=== PATIENT | male | born 1950 | race Caucasian/White ===

== ENCOUNTER 2022-03-10 21:57 | Emergency (ER) | payer MEDICARE, BC, SELFPAY ==
[2022-03-10 22:16] VITALS: BP 181/85; PULSE 84; RESP 22; TEMP 38.2; O2SAT 97
--- NOTE | 2022-03-10 23:24 | CRLHL7_ITS ---
For Patients: As a result of the Cures Act, medical imaging exams and procedure reports are released immediately into your electronic medical record. You may view this report before your referring provider. If you have questions, please contact your health care provider. INDICATION: Fever TECHNIQUE: Chest radiograph 2 views COMPARISON: None FINDINGS: Mediastinum: Previous median sternotomy and coronary artery bypass grafting (CABG) noted. The heart silhouette is normal in size and morphology. Lung: Discoid atelectasis is seen in the left lung base. The right lateral costophrenic sulcus is partially excluded. No sign of pleural effusion seen. No pneumothorax is identified. Bone and Soft tissue: Unremarkable for age. IMPRESSION: 1. Discoid atelectasis is seen in the left lung base. Dictated by Sony Ghosh MD @ 03/11/2022 12:04:27 AM Dictated by: Sony Ghosh MD @ 03/11/2022 00:06:10 (Electronically Signed)
[2022-03-10 23:37] LABS: Appearance Urine Cloudy (Clear); Bilirubin Urine Negative (Negative); Blood Urine Trace-lysed (Negative); Color Urine Yellow (Yellow); Glucose Urine Negative (Negative); Ketones Urine Negative (Negative); Leukocyte Esterase Urine Negative (Negative); Nitrite Urine Negative (Negative); Protein Urine Trace (Negative); Specific Gravity Urine 1.025 (1.000-1.030); Urobilinogen Urine 0.2 (0.2-1.0); pH Urine 5.5 (5.0-8.5)
[2022-03-10 23:45] LABS: SARS Antigen* negative
[2022-03-10] MEDS: ACETAMINOPHEN 500 MG TABLET 1000 MG PO (23:45)
[2022-03-10] MEDS: 0.9 % SODIUM CHLORIDE 1000 ml 1,000 ML IV (23:45)
[2022-03-10 23:47] VITALS: TEMP 38.8
[2022-03-10 23:53] LABS: Glucose, Point-of-Care* 160 mg/dl (60-115)
[2022-03-10 23:55] LABS: RBC Urine 0-2 (0-2); Squamous Epithelial Cell Urine Few (None-Few); WBC Urine 0-2 (0-5)
[2022-03-11 00:03] LABS: Albumin* 4.3 g/dL (3.3-5.0); Chloride* 105 mmol/L (96-114); Sodium* 139 mmol/L (135-149)
[2022-03-11 00:04] LABS: Potassium* 3.9 mmol/L (3.6-5.1)
[2022-03-11 00:05] LABS: Creatinine* 1.1 mg/dL (0.5-1.5); Estimated Glomerular Filt Rate 71.32
[2022-03-11 00:06] LABS: Aspartate Amino Transferase* 32 U/L (12-35); Bilirubin Direct* 0.3 mg/dL (0.0-0.5); Bilirubin Total* 0.7 mg/dL (0.1-1.5); Carbon Dioxide* 25 mmol/L (20-32)
[2022-03-11 00:07] LABS: Alanine Aminotransferase* 35 U/L (4-50); Alkaline Phosphatase* 65 U/L (40-150); Blood Urea Nitrogen* 20 mg/dL (7-30); Calcium* 9.4 mg/dL (8.4-10.6); Glucose* 168 mg/dL (60-115); Total Protein* 7.2 g/dL (6.0-8.3)
[2022-03-11 00:09] LABS: C Reactive Protein* 1.5 mg/dL (0.5-1.0)
[2022-03-11 00:40] LABS: Basophils Percent Auto 0.2 % (0.0-3.0); Eosinophils Percent Auto 0.1 % (0.0-7.0); Hematocrit 43.8 % (37.0-53.0); Hemoglobin* 14.8 gm/dL (13.5-17.5); Immature Granulocytes Abs Auto 0.08 K/uL (0.00-0.30); Lymphocytes Percent Auto 3.5 % (20-44); Mean Corpuscular HGB Conc 34 gm/dL (32-36); Mean Corpuscular Hemoglobin 30 pg (26-34); Mean Corpuscular Volume 89 fL (80-100); Monocytes Percent Auto 5.7 % (0.0-11.0); Platelet Count* 149 K/uL (140-440); RDW Coefficient of Variation % 13.1 % (11.5-15.5); Red Blood Count 4.94 m/uL (4.30-5.90)
[2022-03-11 00:45] LABS: Slide Review Reflex No
[2022-03-11 01:04] LABS: Influenza Type A Negative (Negative); Influenza Type B Negative (Negative)
[2022-03-11 01:14] VITALS: RESP 16; TEMP 37
[2022-03-11 02:00] VITALS: BP 131/67; PULSE 68; RESP 16; TEMP 37; O2SAT 97
[2022-03-11 02:51] VITALS: BP 125/78; PULSE 78; RESP 18; TEMP 37
--- NOTE | 2022-03-11 11:48 | ED_ITS ---
HPI - Fever General Chief Complaint: Fever Stated Complaint: Fever,Shaking Time Seen by Provider: 03/10/22 22:10 Source: patient, family, RN notes reviewed and old records reviewed Limitations: no limitations History of Present Illness HPI Narrative: 71-year-old man presenting to the emergency department accompanied by spouse with concern of feeling feverish and shaky. This developed around 6 hours ago sometime around 3:00 p.m. at least. He does not have any chest pain but maybe a fullness in his chest. Apparently has burped and this has helped the sensation he is having. He is not nauseated. Notes a history of LUTS with bladder distension and left testicular swelling. He is not having particular dysuria but does have a sense of urgency, this is not new. No diarrhea. vaccinated for COVID and boosted. Was tested earlier today apparently at home with negative COVID antigen. Just recently had COVID and treated with 5 days of Paxil of it. Earlier this week tested negative on recheck. Also had a COVID diagnosis 1 or 2 months ago reports. Took ibuprofen a couple hours before arrival here. During exam does get urge to urinate. Certainly fullness in the low abdomen. Nursing checks with bladder scan noting postvoid residual of 290 mL. On my review of records I see an echocardiogram from 02/17/2022 with an EF of 58% and normal function. Related Data Home Medications Medication Instructions Recorded Confirmed amlodipine 10 mg tablet mg 03/10/22 bupropion HCl 150 mg 24 hr tablet, mg PO 03/10/22 extended release carvedilol 6.25 mg tablet mg 03/10/22 hydrochlorothiazide 12.5 mg tablet mg 03/10/22 insulin syringe-needle U-100 0.5 03/10/22 03/10/22 mL 31 gauge x 01/18 (TRUEplus Insulin) levothyroxine 175 mcg tablet mcg 03/10/22 losartan 100 mg tablet mg 03/10/22 mirtazapine 7.5 mg tablet mg 03/10/22 nirmatrelvir 300 mg (150 mg x tab PO 03/10/22 2)-ritonavir 100 mg tablet (EUA) (Paxlovid 300 mg () rosuvastatin 10 mg tablet mg 03/10/22 rosuvastatin 5 mg tablet mg 03/10/22 sertraline 50 mg tablet mg 03/10/22 tamsulosin 0.4 mg capsule mg PO 03/10/22 Allergies Allergy/AdvReac Type Severity Reaction Status Date / Time No Known Drug Allergies Allergy Verified 03/10/22 22:19 Review of Systems Status of ROS Reports: 6 or more systems reviewed and unremarkable except as noted in History and below [facility] Social History Smoking Status: Unknown if ever smoked Do you use any of these nicotine containing products: None Non-prescribed substance use: denies use Exam Narrative Exam Narrative: Well-nourished NAD but seems generally uncomfortable. Hard of hearing. Speaking easily. Breathing easily. nerves 2-12 otherwise intact. Ry complected about his face. He seems generally tired. Skin generally rather warm without rash. Oropharynx is a little sticky. Lungs are clear equal expansion excursion. Cardiovascular is RRR without murmurs rubs or gallops. Abdomen is soft normoactive bowel sounds. Fullness in the lower abdomen also triggering desire to urinate. There is no flank pain. Extremities are without edema. Moving all extremities without difficulty. Well-perfused Const Vital Signs, click to edit/add: Vital Signs - 24 hr 03/10/22 22:16 03/10/22 23:47 03/11/22 01:14 Temperature 100.8 F H 101.9 F H 98.6 F Pulse Rate Pulse Rate [Left Pulse Oximeter] 84 Respiratory Rate 22 16 Blood Pressure Blood Pressure [Left Upper Arm] 181/85 H Pulse Oximetry 97 03/11/22 02:00 03/11/22 02:51 Temperature 98.6 F 98.6 F Pulse Rate 78 Pulse Rate [Left Pulse Oximeter] 68 Respiratory Rate 16 18 Blood Pressure 125/78 Blood Pressure [Left Upper Arm] 131/67 Pulse Oximetry 97 Documenting provider has reviewed patient's vital signs: yes Course Course Hospital Course: IV was established. Given acetaminophen. Fluid resuscitation. Fever broke. Overall improved. Vitally well. Vital Signs Vital signs: Initial Vital Signs Temperature 100.8 F H 03/10/22 22:16 Temperature Source Temporal Artery Scan 03/10/22 22:16 Pulse Rate 84 03/10/22 22:16 Pulse Rhythm 03/10/22 22:16 Respiratory Rate 22 03/10/22 22:16 Blood Pressure 181/85 H 03/10/22 22:16 Blood Pressure Mean 117 03/10/22 22:16 Blood Pressure Position Supine 03/10/22 22:16 Pulse Oximetry 97 03/10/22 22:16 Oxygen Delivery Method 03/10/22 22:16 Vital Signs Temperature 100.8 F H 03/10/22 22:16 Pulse Rate 84 03/10/22 22:16 Respiratory Rate 22 03/10/22 22:16 Blood Pressure 181/85 H 03/10/22 22:16 Pulse Oximetry 97 03/10/22 22:16 Temperature 98.6 F 03/11/22 02:51 Pulse Rate 78 03/11/22 02:51 Respiratory Rate 18 03/11/22 02:51 Blood Pressure 125/78 03/11/22 02:51 Pulse Oximetry 97 03/11/22 02:00 MDM - Fever MDM Narrative Medical decision making narrative: White count was elevated over 17,000. Mild elevation of CRP. X-ray without infiltrate by my read.Radiology noting some atelectatic changes. COVID antigen testing was negative as was influenza. Blood cultures pending Think best explanation is nonspecific viral illness with fever. He is not the only 1 coming through the emergency department with similar presentation today. Medical Records Attestation: I reviewed the patient's medical records. Lab Data Attestation: I reviewed the patient's lab results. Labs: Lab Results 03/10/22 03/10/22 03/10/22 Range/Units 22:52 23:30 23:37 WBC 17.70 H (4.50-11.00) K/uL RBC 4.94 (4.30-5.90) m/uL Hgb 14.8 (13.5-17.5) gm/dL Hct 43.8 (37.0-53.0) % MCV 89 (80-100) fL MCH 30 (26-34) pg MCHC 34 (32-36) gm/dL RDW Coeff of [place] 13.1 (11.5-15.5) % Plt Count 149 (140-440) K/uL Neut % (Auto) 90.0 H (42.0-72.0) % Lymph % (Auto) 3.5 L (20-44) % [place] % (Auto) 5.7 (0.0-11.0) % Eos % (Auto) 0.1 (0.0-7.0) % Baso % (Auto) 0.2 (0.0-3.0) % Neut # (Auto) 15.90 H (1.7-7.0) K/uL Lymph # (Auto) 0.60 L (0.90-2.90) K/uL [place] # (Auto) 1.00 H (0.00-0.90) K/UL Eos # (Auto) 0.00 (0.00-0.50) K/uL Baso # (Auto) 0.00 (0.00-0.30) K/uL Abs Immat Gran (auto) 0.08 (0.00-0.30) K/uL Sodium (135-149) mmol/L Potassium (3.6-5.1) mmol/L Chloride (96-114) mmol/L Carbon Dioxide (20-32) mmol/L BUN (7-30) mg/dL Creatinine (0.5-1.5) mg/dL Glucose (60-115) mg/dL Calcium (8.4-10.6) mg/dL Total Bilirubin (0.1-1.5) mg/dL Direct Bilirubin (0.0-0.5) mg/dL AST (12-35) U/L ALT (4-50) U/L Alkaline Phosphatase (40-150) U/L C-Reactive Protein (0.5-1.0) mg/dL Total Protein (6.0-8.3) g/dL Albumin (3.3-5.0) g/dL Urine Color Yellow (Yellow) Urine Appearance Cloudy A (Clear) Urine pH 5.5 (5.0-8.5) Ur Specific [place] 1.025 (1.000-1.030) Urine Protein Trace A (Negative) Urine Glucose (UA) Negative (Negative) Urine Ketones Negative (Negative) Urine Blood Trace-lysed A (Negative) Urine Nitrite Negative (Negative) Urine Bilirubin Negative (Negative) Urine Urobilinogen 0.2 (0.2-1.0) Ur Leukocyte Esterase Negative (Negative) Urine RBC 0-2 (0-2) Urine WBC 0-2 (0-5) Ur Squamous Epith Cells Few (None-Few) Urine Bacteria None (None) Influenza Type A Ag (Negative) Influenza Type B Ag (Negative) SARS-CoV-2 Ag (Rapid) negative POC Glucose (60-115) mg/dl 03/10/22 03/10/22 03/11/22 Range/Units 23:37 23:50 00:30 WBC (4.50-11.00) K/uL RBC (4.30-5.90) m/uL Hgb (13.5-17.5) gm/dL Hct (37.0-53.0) % MCV (80-100) fL MCH (26-34) pg MCHC (32-36) gm/dL RDW Coeff of [place] (11.5-15.5) % Plt Count (140-440) K/uL Neut % (Auto) (42.0-72.0) % Lymph % (Auto) (20-44) % [place] % (Auto) (0.0-11.0) % Eos % (Auto) (0.0-7.0) % Baso % (Auto) (0.0-3.0) % Neut # (Auto) (1.7-7.0) K/uL Lymph # (Auto) (0.90-2.90) K/uL [place] # (Auto) (0.00-0.90) K/UL Eos # (Auto) (0.00-0.50) K/uL Baso # (Auto) (0.00-0.30) K/uL Abs Immat Gran (auto) (0.00-0.30) K/uL Sodium 139 (135-149) mmol/L Potassium 3.9 (3.6-5.1) mmol/L Chloride 105 (96-114) mmol/L Carbon Dioxide 25 (20-32) mmol/L BUN 20 (7-30) mg/dL Creatinine 1.1 (0.5-1.5) mg/dL Glucose 168 H (60-115) mg/dL Calcium 9.4 (8.4-10.6) mg/dL Total Bilirubin 0.7 (0.1-1.5) mg/dL Direct Bilirubin 0.3 (0.0-0.5) mg/dL AST 32 (12-35) U/L ALT 35 (4-50) U/L Alkaline Phosphatase 65 (40-150) U/L C-Reactive Protein 1.5 H (0.5-1.0) mg/dL Total Protein 7.2 (6.0-8.3) g/dL Albumin 4.3 (3.3-5.0) g/dL Urine Color (Yellow) Urine Appearance (Clear) Urine pH (5.0-8.5) Ur Specific [place] (1.000-1.030) Urine Protein (Negative) Urine Glucose (UA) (Negative) Urine Ketones (Negative) Urine Blood (Negative) Urine Nitrite (Negative) Urine Bilirubin (Negative) Urine Urobilinogen (0.2-1.0) Ur Leukocyte Esterase (Negative) Urine RBC (0-2) Urine WBC (0-5) Ur Squamous Epith Cells (None-Few) Urine Bacteria (None) Influenza Type A Ag Negative (Negative) Influenza Type B Ag Negative (Negative) SARS-CoV-2 Ag (Rapid) POC Glucose 160 H (60-115) mg/dl Discharge Plan Discharge Clinical Impression: Acute neutrophilia, Acute febrile illness Patient Disposition: Home w/ Parent or Adult Condition: Improved Additional Instructions: focus on hydration with unsugared/unsweetened liquids. Water is a good one. We did give you 2 L of fluid here Partly as he or kidneys looked like they were under a little stress. I would follow-up in 1-2 weeks to recheck labs in clinic. Blood cultures are pending here. return for increasing and persistent weakness in spite of fever control, inability to control fever, suspected associated increasing shortness of breath/chest pain/ abdominal pain, repeated vomiting, intractable diarrhea. Prescriptions: No Action levothyroxine 175 mcg tablet 0RF Label Comments: TAKE ONE TABLET BY MOUTH ONCE DAILY BEFORE BREAKFAST carvedilol 6.25 mg tablet 0RF Label Comments: TAKE ONE TABLET BY MOUTH 2 TIMES DAILY WITH MEALS tamsulosin 0.4 mg capsule PO 0RF Label Comments: TAKE ONE CAPSULE BY MOUTH TWICE A DAY amlodipine 10 mg tablet 0RF Label Comments: TAKE ONE TABLET BY MOUTH ONCE DAILY losartan 100 mg tablet 0RF Label Comments: TAKE 1 TABLET (100 MG) BY MOUTH ONCE DAILY. sertraline 50 mg tablet 0RF Label Comments: TAKE 1/2 TABLET BY MOUTH DAILY FOR 1 WEEK THEN TAKE 1 TABLET DAILY (DME) insulin syringe-needle U-100 [TRUEplus Insulin] 0.5 mL 31 gauge x 5/16 syringe MISCELLANEOUS 0RF Label Comments: USE DIRECTED TO ADMININSTER INSULIN PER MD INSTRUCTIONS rosuvastatin 5 mg tablet 0RF Label Comments: TAKE ONE TABLET BY MOUTH AT BEDTIME rosuvastatin 10 mg tablet 0RF Label Comments: TAKE ONE TABLET (10MG) BY MOUTH AT BEDTIME bupropion HCl 150 mg tablet extended release 24 hr PO 0RF Label Comments: TAKE ONE TABLET BY MOUTH EVERY MORNING mirtazapine 7.5 mg tablet 0RF Label Comments: TAKE 1 TABLET (7.5 MG) BY MOUTH AT BEDTIME. hydrochlorothiazide 12.5 mg tablet 0RF Label Comments: TAKE ONE TABLET BY MOUTH ONCE DAILY Paxlovid (EUA) 150 mg x 2- 100 mg tablet PO 0RF Label Comments: TAKE 2 NIRMATRELVIR 150 MG PINK-OVAL TABLETS AND 1 RITONAVIR 100 MG WHITE- OVAL TABLET TOGETHER TWICE DAILY FOR 5 DAYS. Follow Up/Referrals: Pritesh Cruz MD [Primary Care Provider] - Stand Alone Forms: [facility] Info Instructions
== END 2022-03-11 02:51 | disposition home or self-care (01) ==
PROVIDERS: Emergency Provider Family Medicine; PCP Family Medicine
DX: R50.9 Fever, unspecified (principal); D70.8 Other neutropenia
CPT/HCPCS: 36415; 71046; 80048; 80076; 81003; 81015; 82947; 85025; 86140; 87040; 87077; 87186; 87426; 87804; 99283; 99284; A9270; J7030

== ENCOUNTER 2022-04-06 12:49 | Outpatient (RCR) | payer MEDICARE, BC, SELFPAY | END 2022-06-09 14:31 | disposition home or self-care (01) | PROVIDERS: PCP Family Medicine; Visit Provider Family Medicine | DX: R10.2 Pelvic and perineal pain (principal); Z51.89 Encounter for other specified aftercare | CPT/HCPCS: 97140; 97162; 97535 ==

== ENCOUNTER 2023-03-21 09:14 | Outpatient (CLI) | payer MEDICARE, BC, SELFPAY ==
--- NOTE | 2023-03-21 08:38 | P.ANHP_ITS ---
HPI - Pre-Anesthesia History of Present Illness Time Seen by Provider: 09:39 Date Seen: 03/21/23 Date of service: 03/21/23 Source: patient and old records reviewed Review of Systems Status of ROS Reports: 6 or more systems reviewed and unremarkable except as noted in History and below [facility] Medical History (Updated 03/21/23 @ 09:41 by Emmett Lema MD) ROBERT on CPAP ?G47.33 - Obstructive sleep apnea (adult) (pediatric) (ICD-10) Hematoma of neck ?S10.93XA - Contusion of unspecified part of neck, initial encounter (ICD-10) CAD (coronary artery disease) ?I25.10 - Atherosclerotic heart disease of [place] coronary artery without angina pectoris (ICD-10) Hypothyroidism ?E03.9 - Hypothyroidism, unspecified (ICD-10) Surgical History (Updated 03/21/23 @ 09:41 by Emmett Lema MD) History of evacuation of hematoma ?Z98.890 - Other specified postprocedural states (ICD-10) H/O thyroidectomy ?E89.0 - Postprocedural hypothyroidism (ICD-10) Hx of CABG ?Z95.1 - Presence of aortocoronary bypass graft (ICD-10) Social History Smoking Status: Unknown if ever smoked Do you use any of these nicotine containing products: None Non-prescribed substance use: denies use Meds Home Medications and Allergies Home Medications Medication Instructions Recorded Confirmed Type amlodipine 10 mg tablet mg 03/10/22 History bupropion HCl 150 mg 24 hr tablet, mg PO 03/10/22 History extended release carvedilol 6.25 mg tablet mg 03/10/22 History hydrochlorothiazide 12.5 mg tablet mg 03/10/22 History insulin syringe-needle U-100 0.5 03/10/22 03/10/22 History mL 31 gauge x 01/18 (TRUEplus Insulin) levothyroxine 175 mcg tablet mcg 03/10/22 History losartan 100 mg tablet mg 03/10/22 History mirtazapine 7.5 mg tablet mg 03/10/22 History nirmatrelvir 300 mg (150 mg tab PO 03/10/22 History x2)-ritonavir 100 mg tablet,dose pack (Paxlovid) rosuvastatin 10 mg tablet mg 03/10/22 History rosuvastatin 5 mg tablet mg 03/10/22 History sertraline 50 mg tablet mg 03/10/22 History tamsulosin 0.4 mg capsule mg PO 03/10/22 History Allergies Allergy/AdvReac Type Severity Reaction Status Date / Time No Known Drug Allergies Allergy Verified 03/10/22 22:19 Exam Const Documenting provider has reviewed patient's vital signs: yes Common normals: no apparent distress, oriented x3, healthy appearing, alert and well nourished General appearance: cooperative and comfortable Orientation/consciousness: Yes awake HENMT Common normals: normocephalic Head and scalp: normocephalic Neck & C-Spine Common normals: full ROM Chest Chest: symmetrical chest wall rise Resp Common normals: normal respiratory effort, no retractions, no use of accessory muscles and clear to auscultation bilaterally Auscultation: clear to auscultation bilaterally Cardio Common normals: regular rate, regular rhythm, S1 normal heart sound, S2 normal heart sound and no murmurs Rate: regular rate Rhythm: regular rhythm Heart sounds: S1 normal and S2 normal Neuro Common normals: oriented x3 Sensorium/orientation: awake and alert Assessment and Plan Assessment and plan (1) Colonoscopy planned: Status: Acute Plan ok to proceed with sedation for colonoscopy
--- NOTE | 2023-03-21 08:38 | W.ANESCHARGE ---
Anesthesia Charges Start Date/Time Anesthesia Start Date: 03/21/23 Anesthesia Start Time: 10:03 Stop Date/Time Anesthesia Stop Date: 03/21/23 Anesthesia Stop Time: 10:30 Summary Extremes of Age - Over 70 or under 1: MDA
--- NOTE | 2023-03-21 10:32 | P.ANES_ITS ---
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
== END 2023-03-21 09:15 | disposition home or self-care (01) ==
LOC: OP CLINIC 09:16
PROVIDERS: PCP Family Medicine; Visit Provider Internal Medicine Gastroenterology
DX: Z12.11 Encounter for screening for malignant neoplasm of colon (principal); K63.5 Polyp of colon; Z86.010 Personal history of colon polyps
CPT/HCPCS: 00811; 45385; 88305; 99100; J2704

== ENCOUNTER 2024-08-16 21:23 | Emergency (ER) | payer MEDICARE, BC, SELFPAY ==
[2024-08-16 21:51] VITALS: BP 177/69; PULSE 69; RESP 18; TEMP 36.4
--- NOTE | 2024-08-16 23:01 | ED.GENADULT ---
HPI - General Adult General Chief complaint: Hypertension Stated complaint: high blood pressure Time Seen by Provider: 08/16/24 22:44 Source: patient and family Mode of arrival: ambulatory Limitations: no limitations History of Present Illness HPI narrative: Patient is a david 73-year-old male coming in today concerned about a few things. 1. He is concerned about elevated blood pressure reading that occurred today. He states his blood pressure was 188 systolic at home which is unusual for him. He states that his blood pressures are generally in the 130s to 140s systolic. He checks his blood pressures every single day. He is on multiple blood pressure medications, nothing new. 2. He is concerned about anxiety. Patient states that he has taken lorazepam in the past but stopped taking it he believes about a year ago. He complains of feeling anxious quite frequently, has a difficult time sleeping at night. His anxiety is starting to manifest as anger and impatience. 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 He also notices that he has repetitive behavior like making sure that he has showed off the lights multiple times. This is all new for him and is causing him significant concern. Patient had triple bypass several years ago and he believes this is playing a part in his anxiety as his father also had triple bypass and eventually . Lastly, his is going through cancer treatments in this of course is very stressful for him as well. He does not see a therapist. He does not take any anti anxiety medications. He denies any chest pain or shortness of breath. He walks a mile every day at the [facility] and has no trouble doing that. He denies abdominal discomfort, nausea, vomiting. He is not dizzy or lightheaded. Appetite is unchanged. He has been having sleeping difficulties for quite some time and this is not necessarily new. Related Data Home Medications ?Medication ?Instructions ?Recorded ?Confirmed amlodipine 10 mg tablet mg 03/10/22 06/02/24 hydrochlorothiazide 12.5 mg tablet mg 03/10/22 06/02/24 insulin syringe-needle U-100 0.5 03/10/22 06/02/24 mL 31 gauge x 16 (TRUEplus Insulin) levothyroxine 175 mcg tablet mcg 03/10/22 06/02/24 losartan 100 mg tablet mg 03/10/22 06/02/24 rosuvastatin 10 mg tablet mg 03/10/22 06/02/24 tamsulosin 0.4 mg capsule mg PO 03/10/22 06/02/24 insulin NPH isoph U-100 human 100 25 unit subcut QAM 02/27/24 06/02/24 unit/mL (3 mL) subcutaneous pen (Novolin N FlexPen) aspirin 81 mg chewable tablet 81 mg PO QDAY 04/25/24 06/02/24 carvedilol 6.25 mg tablet 6.25 mg PO BID 04/25/24 06/02/24 Allergies Allergy/AdvReac Type Severity Reaction Status Date / Time No Known Drug Allergies Allergy Verified 06/02/24 10:48 Review of Systems Status of ROS: Reports: 10 or more systems reviewed and unremarkable except as noted in History and below [facility] Medical History ROBERT on CPAP ?G47.33 - Obstructive sleep apnea (adult) (pediatric) (ICD-10) Hematoma of neck ?S10.93XA - Contusion of unspecified part of neck, initial encounter (ICD-10) CAD (coronary artery disease) ?I25.10 - Atherosclerotic heart disease of [place] coronary artery without angina pectoris (ICD-10) Hypothyroidism ?E03.9 - Hypothyroidism, unspecified (ICD-10) Surgical History History of evacuation of hematoma ?Z98.890 - Other specified postprocedural states (ICD-10) H/O thyroidectomy ?E89.0 - Postprocedural hypothyroidism (ICD-10) Hx of CABG ?Z95.1 - Presence of aortocoronary bypass graft (ICD-10) Social History Smoking Status: Former smoker Do you use any of these nicotine containing products: None How often do you have a drink containing alcohol: monthly or less How many standard drinks containing alcohol do you have on a typical day: 1 or 2 AUDIT-C Alcohol total score: 1 Non-prescribed substance use: denies use Exam Narrative: Exam Narrative: Well-nourished well-developed patient in no acute distress. Alert and oriented. Answers questions appropriately. Mood and affect are appropriate. Thoughts are goal oriented and rational. No tangential or magical thinking noted. Patient speaks in full sentences without needing to catch his breath. Speech is not slurred or pressured. HEENT: Normocephalic atraumatic. Pupils are equally round reactive to light. Extraocular muscles are intact. Conjunctivae are moist without any icterus noted. Moist mucous membranes. Cardiovascular: Heart is regular rate and rhythm. No murmur appreciated. Lungs: Clear to auscultation bilaterally no wheezes rhonchi or rales are appreciated. Patient takes deep breaths without any discomfort. Abdomen: Soft with normal bowel sounds. Skin: Well perfused without any obvious rashes. Const: Vital Signs, click to edit/add: Vital Signs - 24 hr 08/16/24 21:51 Temperature 97.5 F L Pulse Rate [Pulse Oximeter] 69 Respiratory Rate 18 Blood Pressure [Ri ght Upper Arm] 177/69 H Oxygen Delivery Me thod Room Air Course Course ED Course: Was found amount of time talking today about his stressors in his anxiety. We discussed potential ways of going forward including seeing a therapist, following up with his primary to discuss an anxiolytic. We discussed decreasing the frequency that he checks his blood pressures. We discussed that a few elevated blood pressure readings, without any symptoms, are nothing to be concerned about. Vital Signs Vital signs: Initial Vital Signs Temperature 97.5 F L 08/16/24 21:51 Temperature Source Temporal Artery Scan 08/16/24 21:51 Pulse Rate 69 08/16/24 21:51 Respiratory Rate 18 08/16/24 21:51 Blood Pressure 177/69 H 08/16/24 21:51 Blood Pressure Mean 105 08/16/24 21:51 Oxygen Delivery Method Room Air 08/16/24 21:51 Vital Signs Temperature 97.5 F L 08/16/24 21:51 Pulse Rate 69 08/16/24 21:51 Respiratory Rate 18 08/16/24 21:51 Blood Pressure 177/69 H 08/16/24 21:51 Oxygen Delivery Method Room Air 08/16/24 21:51 Temperature 97.5 F L 08/16/24 21:51 Pulse Rate 69 08/16/24 21:51 Respiratory Rate 18 08/16/24 21:51 Blood Pressure 177/69 H 08/16/24 21:51 Oxygen Delivery Method Room Air 08/16/24 21:51 Medical Decision Making MDM Narrative Medical decision making narrative: 73-year-old male with anxiety and elevated blood pressure. We discussed the importance of sleep. Provided the patient with several phone numbers of local therapists. His when follow-up with primary care provider to discuss anxiety treatment. Discharge Plan Discharge Clinical Impression: Elevated blood pressure reading, Anxiety Patient Disposition: Home, Self-Care Condition: Stable Instructions: Anxiety (ED) Additional Instructions: Recommend you establish care with a therapist to discuss anxiety. Also recommend you follow-up with your primary care provider this coming week to discuss medical management of anxiety. As far as your blood pressure a few high readings is nothing to be concerned about. Recommend that you not check your blood pressure daily, but instead check it once per week. Prescriptions: No Action carvedilol 6.25 mg tablet 6.25 mg PO BID Rx Instructions: must administer with a meal/food aspirin 81 mg tablet,chewable 81 mg PO QDAY Novolin N FlexPen 100 unit/mL (3 mL) insulin pen 25 unit subcut QAM levothyroxine 175 mcg tablet Patient Comments: TAKE ONE TABLET BY MOUTH ONCE DAILY BEFORE BREAKFAST tamsulosin 0.4 mg capsule PO Patient Comments: TAKE ONE CAPSULE BY MOUTH TWICE A DAY amlodipine 10 mg tablet Patient Comments: TAKE ONE TABLET BY MOUTH ONCE DAILY losartan 100 mg tablet Patient Comments: TAKE 1 TABLET (100 MG) BY MOUTH ONCE DAILY. (DME) insulin syringe-needle U-100 [TRUEplus Insulin] 0.5 mL 31 gauge x 5/16 syringe MISCELLANEOUS Patient Comments: USE DIRECTED TO ADMININSTER INSULIN PER MD INSTRUCTIONS rosuvastatin 10 mg tablet Patient Comments: TAKE ONE TABLET (10MG) BY MOUTH AT BEDTIME hydrochlorothiazide 12.5 mg tablet Patient Comments: TAKE ONE TABLET BY MOUTH ONCE DAILY Follow Up/Referrals: Pritesh Cruz MD [Primary Care Provider] - Stand Alone Forms: [facility] Info Instructions
== END 2024-08-16 23:14 | disposition home or self-care (01) ==
LOC: ED 23:04
PROVIDERS: Emergency Provider Family Medicine; PCP Family Medicine
DX: R03.0 Elevated blood-pressure reading, without diagnosis of hypertension (principal); F41.9 Anxiety disorder, unspecified
CPT/HCPCS: 99283; 99284

== ENCOUNTER 2024-08-23 04:27 | Emergency (ER) | payer MEDICARE, BC, SELFPAY ==
--- OUTSIDE RECORDS SUMMARY | 2024-08-23 04:30 | XMS_ITS | Continuity of Care Document ---
Author Name [place] [facility] Allergies, Adverse Reactions, Alerts Medications Problem List Procedures No known history of procedures. Relevant Diagnostic Tests and/or Laboratory Data No known relevant diagnostic tests, laboratory data, and/or discharge summary. Hospital Discharge Instructions No known hospital discharge instructions. Functional Status No known functional status. Immunizations No known immunizations. Plan of Care No Known Plan of Care Information Social History No known social history. Vital Signs No known vital signs results.
--- OUTSIDE RECORDS SUMMARY | 2024-08-23 04:30 | XMS_ITS | Data Portability ---
Author Organization [facility] Cli yany Judah, z[facility]OLD [facility] IP Address [address] [place] [address] Assessment No assessment recorded. Plan of Treatment Reminders Order Date Submit Date Provider Last Modified By Organization Details Last Modified Time Details Appointments None record ed. Lab None record ed. Referral None record ed. Procedures None record ed. Surgeries None record ed. Imaging None record ed. Medication Orders neomyc in-monica ymyxin -hydro ilana 3.5 mg-10, 000 unit/m L-1 % ear drops, susp 024 09/30/19 24 [facility] [place], [address], 13:52:28 Patient TargetsNo targets recorded. Patient Instructions Encounter Date Encounter Id Patient Instructions Last Modified By Organization Details Last Modified Time 09/30/2023 [id number] Instructed on prescribed medication. OK to take Flonase and Zyrtec QD. Mucinex as needed for congestion. Advised to push fluids . Tylenol or ibuprofen as needed for discomfort or if fever develops. Change toothbrush. Encouraged use of saline nasal spray. Recommended addition of vitamin C. Educated on symptoms that warrant further evaluation. RTC for any worsening symptoms. Not available 09/30/2023 13:55:59 Large amount of cerumen removed bilaterally with warm water irrigation and curette. PT tolerated well. Discussed that if symptoms worsen or he develops new symptoms, RTC for further evaluation/testin g. Pt is agreeable to this plan and leaves the clinic in stable condition. Not available 09/30/2023 13:57:58 Reason for Referral None Reported. Problems Name Problem SNOMED Code Status Onset Date Resolution Date Notes Provider Name and Address Organization Details Recorded Time Pain of ear 892250683 Active 2023 ANTOINE ERWIN, [facility] 4 13:16:34 Nasal congestion 16710452 Active 2023 ANTOINE ERWIN, [facility] 4 13:16:46 Impacted cerumen of bilateral ears 7988229886356 108 Active 2023 CICI CARNEY [address], [place], [address], [facility] 4 13:52:01 Problem Notes None recorded. Procedures Surgical History Date Name Laterality Status Provider Name and Address Organization Details Recorded Time Cerumen Removal completed CICI CARNEY [address], [place], [address], [facility] 09/30/2023 13:58:25 procedure on neck completed MAMI WHITE CMA [facility] 09/30/2023 13:30:03 Heart Surgery completed MAMI Chino CMA [facility] 09/30/2023 13:30:12 Imaging Results None recorded. Procedure Notes None recorded. Medical Equipment None Reported. Allergies No known drug allergies Medications Name Sig Start Date Stop Date Status Note LastModified by Organization Details LastModified Time carvedilol 6.25 mg tablet TAKE 1 TABLET (6.25 MG) BY MOUTH IN THE MORNING AND 1 TABLET IN THE EVENING. TAKE WITH MEALS. active Not Available Not Available No t Available mirtazapine 15 mg tablet TAKE ONE-HALF TABLET (7.5 MG) BY MOUTH AT BEDTIME. active Not Available Not Available No t Available neomycin-monica ymyxin-hydro ilana 3.5 mg-10,000 unit/mL-1 % ear drops,susp INSTILL 4 DROPS INTO AFFECTED EAR(S) BY OTIC ROUTE 3 TIMES PER DAY active Not Available Not Available No t Available rosuvastatin 20 mg tablet TAKE ONE TABLET (20MG) BY MOUTH AT BEDTIME active Not Available Not Available No t Available levothyroxin e active Not Available Not Available Not Available tamsulosin active Not Available Not Av ailable Not Available hydrochlorot hiazide active Not Available Not Available Not Available carvedilol active Not Available Not Av ailable Not Available amlodipine active Not Available Not Av ailable Not Available losartan active Not Available Not Avai lable Not Available bupropion HCl active Not Available Not Available Not Available mirtazapine active Not Available Not A vailable Not Available rosuvastatin active Not Available Not Available Not Available hydrochlorot hiazide 12.5 mg tablet TAKE ONE TABLET (12.5 MG) BY MOUTH ONCE DAILY. active Not Available Not Available Not Available TRUEplus Insulin 0.5 mL 31 gauge x 5/16 syringe USE DIRECTED TO ADMININSTER INSULIN PER MD INSTRUCTION S active Not Available Not Available No t Available Vitals Date Recorded Body height Body mass index (BMI) Body weight Body temperature Heart rate Respiratory rate Oxygen saturation Oxygen saturation in Arterial blood by Pulse oximetry Systolic blood pressure Diastolic blood pressure Provider Name and Address Organization Details Last Updated DateTime 4 175.26 cm 29.5 kg/m2 04941.4 7 g 98.3 [degF] 67 /min 18 /min 98 % 98 % 120 mm[Hg] 70 mm[Hg] MAMI WHITE CMA [facility] 4 13:25:39 Social History None recorded. Functional Status None recorded. Mental Status None recorded. Family History Nothing Reported. Medical History Condition Response CAROTID BLOCKAGE Y HIGH CHOLESTEROL Y CORONARY ARTERY DISEASE Y ANXIETY DISORDER Y PATIENT DENIES SIGNIFICANT PAST MEDICAL HISTORY N HYPERTENSION Y Past Encounters Encounter ID Performer Location Encounter Start Date Encounter Closed Date Diagnosis/Indication Diagnosis SNOMED-CT Code Diagnosis ICD10 Code [id number] CICI CARNEY [facility] [address] [place] [address] [address] 09/30/2023 12:51:37 09/30/2023 17:16:36 Impacted cerumen of bilateral ears [id number] 282679 H61.23 Pain of ear 566079448 H9 2.09 Health Concerns Section Related Observation LastModified by Organization Detai ls LastModified Time None Recorded Concern Status LastModified by Organization Details LastModified Time None Recorded Advance Directives Directive None Recorded Payers Encounter Date Sequence Insurance Name Policy Number Policy Dixon Covered Member ID Dixon Member ID Guarantor Name 09/30/2023 1 [place] Vitaliy Richards [id number] Vitaliy Richards Notes Date Note Type Note Provider Name and Address Organization Details Recorded Time 09/30/2023 text/html 72yo M presents to the clinic with c/o bilateral ear pain with pmh of cerumen impaction. PT denies cough, fever sob, or sore throat. Pt does c/o mild nasal congestion. PT denies the use of any medications for his symptoms. NKDA. CICI CARNEY [address], [place], [address], [facility] 09/30/2023 13:58:58
[2024-08-23 04:40] VITALS: BP 170/152; PULSE 62; RESP 20; TEMP 36.3; O2SAT 98
--- NOTE | 2024-08-23 05:36 | ED_ITS ---
HPI - General Adult General Chief complaint: Back Injury/Pain Stated complaint: Back pain Time Seen by Provider: 08/23/24 04:48 Source: patient Mode of arrival: ambulatory Limitations: no limitations History of Present Illness HPI narrative: 73-year-old male presents the emergency department with pain in the left inguinal/back area radiating to the left testicle for the past 8 hours. Took 400 mg of ibuprofen with initial improvement. Was able to sleep for a short period of time then awoke at 11:00 p.m. with pain, did not try taking any additional medications, sleep aids or other interventions. No trauma or injury, no dysuria. No prior history of kidney stones. No prior history of hernia. Was told that he has a cyst near the left testicle that would flare up from time to time but no treatment was indicated. He wonders if this is related. He also reports that he has been feeling constipated lately. No bloody stools, no bloody urine, no fever. No history of lumbar spine disease. Reports that he had surgery at age 17 for a blood clot in his spine, but it does not sound as though there was any fracture or nerve damage. No swelling of the testicle noted. Reported on initial arrival that he felt like his blood sugar could be low, checked by nursing in triage in 12 me that it was not. He was given a snack and some apple juice. He promptly got granola all over the floor in exam room 1. Reports a prior history of diabetes and hypertension. Cannot list his medications for me. We do have a list of unknown doses. ROS is notable for the left inguinal pain area, otherwise denies times 12 systems. Related Data Home Medications ?Medication ?Instructions ?Recorded ?Confirmed amlodipine 10 mg tablet 5 mg PO DAILY 03/10/22 08/23/24 hydrochlorothiazide 12.5 mg tablet 12.5 mg PO DAILY 03/10/22 08/23/24 insulin syringe-needle U-100 0.5 03/10/22 06/02/24 mL 31 gauge x 01/18 (TRUEplus Insulin) levothyroxine 175 mcg tablet 175 mcg feeding tube DAILY 03/10/22 08/23/24 losartan 100 mg tablet 100 mg PO DAILY 03/10/22 08/23/24 rosuvastatin 10 mg tablet 20 mg PO DAILY 03/10/22 08/23/24 tamsulosin 0.4 mg capsule 0.8 mg PO Q24H 03/10/22 08/23/24 insulin NPH isoph U-100 human 100 29 unit subcut QAM 02/27/24 08/23/24 unit/mL (3 mL) subcutaneous pen (Novolin N FlexPen) aspirin 81 mg chewable tablet 81 mg PO QDAY 04/25/24 08/23/24 carvedilol 6.25 mg tablet 6.25 mg PO BID 04/25/24 08/23/24 insulin regular human 100 unit/mL 11 unit subcut QAM 08/23/24 08/23/24 (3 mL) subcutaneous pen (Novolin R FlexPen) sennosides 8.6 mg-docusate sodium 1 tab-cap PO BID 08/23/24 08/23/24 50 mg capsule (Senna Plus) Previous Rx's ?Medication ?Instructions ?Recorded cyclobenzaprine 10 mg tablet 10 mg PO BID PRN muscle spasm #14 08/23/24 tabs ketorolac 10 mg tablet 10 mg PO Q6H PRN pain 5 days #20 08/23/24 tabs Allergies Allergy/AdvReac Type Severity Reaction Status Date / Time No Known Drug Allergies Allergy Verified 06/02/24 10:48 PFSH PFS Medical History ROBERT on CPAP ?G47.33 - Obstructive sleep apnea (adult) (pediatric) (ICD-10) Hematoma of neck ?S10.93XA - Contusion of unspecified part of neck, initial encounter (ICD-10) CAD (coronary artery disease) ?I25.10 - Atherosclerotic heart disease of [place] coronary artery without angina pectoris (ICD-10) Hypothyroidism ?E03.9 - Hypothyroidism, unspecified (ICD-10) Surgical History History of evacuation of hematoma ?Z98.890 - Other specified postprocedural states (ICD-10) H/O thyroidectomy ?E89.0 - Postprocedural hypothyroidism (ICD-10) Hx of CABG ?Z95.1 - Presence of aortocoronary bypass graft (ICD-10) Social History Smoking Status: Former smoker Do you use any of these nicotine containing products: None Second hand tobacco smoke exposure: No How often do you have a drink containing alcohol: monthly or less How many standard drinks containing alcohol do you have on a typical day: 1 or 2 AUDIT-C Alcohol total score: 1 Non-prescribed substance use: denies use service: No Exam Const: Vital Signs, click to edit/add: Vital Signs - 24 hr 08/23/24 04:40 Temperature 97.3 F L Pulse Rate [Left P ulse Oximeter] 62 Respiratory Rate 20 Blood Pressure [Ri ght Upper Arm] 170/152 H Pulse Oximetry 98 Oxygen Delivery Me thod Room Air Documenting provider has reviewed patient's vital signs: yes Common normals: no apparent distress and alert General appearance: cooperative HENMT: Common normals: normocephalic Head and scalp: normocephalic Face and sinus: normal facial exam Mouth: oral and palatal mucosa normal Throat: posterior oropharynx normal Eye: Common normals: conjunctivae normal Conjunctiva: conjunctiva(e) normal Neck & C-Spine: Common normals: full ROM and no lymphadenopathy Chest: Common normals: inspection of chest normal Resp: Common normals: normal respiratory effort and no use of accessory muscles Effort & inspection: able to speak in complete sentences Cardio: Common normals: regular rate, regular rhythm, S1 normal heart sound, S2 normal heart sound and no murmurs Rate: regular rate Rhythm: regular rhythm Heart sounds: S1 normal and S2 normal GI: Common normals: Normal to inspection, nondistended, normoactive bowel sounds present, soft to palpation, non-tender, no hepatosplenomegaly and no masses Palpation: soft and no hepatosplenomegaly : Common normals: no CVA tenderness Bladder/kidney exam: no CVA tenderness Other: Right testicle and scrotum normal. Left testicle seems nontender but there is swelling in the spermatic cord area, that is likely consistent with the previous cyst. Pain is not worsened by palpation. No redness, bruising or signs of trauma. Back & Pelvis: Common normals: no CVA tenderness, thoracic and lumbar spine normal to inspection, no thoracic nor lumbar tenderness, thoraco-lumbar ROM normal and straight leg raise negative bilaterally Sacroiliac joints: SI joints normal Extremity: Common normals: normal to inspection Neuro: Sensorium/orientation: alert Gait (neuro): normal gait Motor exam: no movement abnormalities noted Psych: Common normals: thought process normal Appearance: grossly normal Mood and affect: flat affect Thought process: normal thought process Insight: fair Judgement: fair Skin: Common normals: no rashes or lesions noted General skin exam: no rashes or lesions noted Course Course ED Course: 73-year-old male with vague left inguinal pain. No obvious signs of hernia or testicular torsion on exam. Suspect that he has a persistent cyst in that area. Differential diagnosis for acute pain including kidney stone, constipation, colitis, urinary infection, hernia, testicular torsion, epididymitis, amongst others. Will start with a urinalysis, if blood is present, will CT looking for kidney stone. If negative, abdominal x-ray and testicular ultrasound. Toradol p.o. x1 for pain. Reevaluation(s) Time of Reevaluation #1: 07:10 Reevaluation #1: Patient feeling a little better after the Toradol. Counseled on CT findings. Has a 2 mm ureteral stone, would certainly explain symptoms. He also has a small gallbladder nodule, this will need primary care outpatient follow-up. Written copy of the report and instructions in his discharge paperwork is provided. For pain, recommend Tylenol 1000 mg every 6 hours. Prescription for Toradol given 1 tablet every 6 hours as needed for pain. Drink lots of fluids. Alarm symptoms of infection reviewed. Patient just had labs performed recently, reviewed. These do not need to be repeated today. Also gave a prescription for Flexeril to take at bedtime if the pain is bothersome to help with sleep. Written instructions provided, all questions answered. Vital Signs Vital signs: Initial Vital Signs Temperature 97.3 F L 08/23/24 04:40 Temperature Source Temporal Artery Scan 08/23/24 04:40 Pulse Rate 62 08/23/24 04:40 Pulse Rhythm Regular 08/23/24 04:40 Respiratory Rate 20 08/23/24 04:40 Blood Pressure 170/152 H 08/23/24 04:40 Blood Pressure Mean 158 H 08/23/24 04:40 Blood Pressure Position Sitting 08/23/24 04:40 Pulse Oximetry 98 08/23/24 04:40 Oxygen Delivery Method Room Air 08/23/24 04:40 Vital Signs Temperature 97.3 F L 08/23/24 04:40 Pulse Rate 62 12/19/24 04:40 Respiratory Rate 20 08/23/24 04:40 Blood Pressure 170/152 H 08/23/24 04:40 Pulse Oximetry 98 08/23/24 04:40 Oxygen Delivery Method Room Air 08/23/24 04:40 Temperature 97.3 F L 08/23/24 04:40 Pulse Rate 62 08/23/24 04:40 Respiratory Rate 20 08/23/24 04:40 Blood Pressure 170/152 H 08/23/24 04:40 Pulse Oximetry 98 08/23/24 04:40 Oxygen Delivery Method Room Air 08/23/24 04:40 Medications Administered Medications: Discontinued Medications Generic Name Dose Route Start Last Admin Trade Name Freq PRN Reason Stop Dose Admin Ketorolac Tromethamine 10 mg 08/23/24 05:29 08/23/24 05:59 Ketorolac 10 Mg Tablet PO 08/23/24 05:30 10 mg ONCE ONE Administration Medical Decision Making Lab Data Labs: Lab Results 08/23/24 Range/Units 05:30 Urine Color Yellow (Yellow) Urine Appearance Cloudy A (Clear) Urine pH 5.5 (5.0-8.5) Ur Specific [place] 1.025 (1.000-1.030) Urine Protein 1+ A (Negative) Urine Glucose (UA) 2+ A (Negative) Urine Ketones Negative (Negative) Urine Blood 3+ A (Negative) Urine Nitrite Negative (Negative) Urine Bilirubin Negative (Negative) Urine Urobilinogen 0.2 (0.2-1.0) Ur Leukocyte Esterase Negative (Negative) Urine RBC 10-25 A (0-2) Urine WBC 5-10 A (0-5) Ur Squamous Epith Cells Moderate A (None-Few) Amorphous Sediment Many A (None) Urine Bacteria Moderate A (None) Discharge Plan Discharge Clinical Impression: Ureterolithiasis Patient Disposition: Home w/ Parent or Adult Instructions: Ureteral Stones (ED) Additional Instructions: As we discussed, you have a small stone in your left distal ureter. This is 2 mm which is very small, this should pass with no complication. You should come back to the emergency department if you have high fever over 100.4, persistent vomiting that does not allow you to hold down liquids for over 24 hours and or other signs of series complication. You may notice a little bit of blood tinge in your urine. You do not need to strain your urine because it is so small. For pain, recommend Tylenol 1000 mg every 6 hours. I will give a prescription for Toradol which is an anti-inflammatory pain medication. We take this up to every 6 hours for the next few days. It can take a couple of weeks for the stone to pass but with drinking lots of fluids, it should pass without difficulty. I will also give a prescription for Flexeril which is a muscle relaxant to take at night which should help you sleep and can be very sedating. Use caution when taking the medication because of the sedating effects. If the stone has not passed in 2 weeks, please follow-up with your primary care doctor. You also do have a small polyp near the gallbladder that needs an ultrasound follow-up. This is not available at this time of day and is non emergent. Please schedule an appointment with her primary care doctor in a month or so to have this further evaluated. A printed copy of the report is provided for your memory and convenience. This is not thought to be dangerous in any way, but does require further imaging that would not be seen on the CT scan. These things are found commonly when we do imaging for other reasons. Activity Level: No Restrictions Discharge Diet: Regular Prescriptions: New cyclobenzaprine 10 mg tablet 10 mg PO BID PRN (Reason: muscle spasm) Qty: 14 0RF ketorolac 10 mg tablet 10 mg PO Q6H PRN (Reason: pain) 5 Days Qty: 20 0RF No Action carvedilol 6.25 mg tablet 6.25 mg PO BID Rx Instructions: must administer with a meal/food aspirin 81 mg tablet,chewable 81 mg PO QDAY Novolin N FlexPen 100 unit/mL (3 mL) insulin pen 29 unit subcut QAM Rx Instructions: 29 units Novlin N Q AM 18 units Novolin R Q AM 11 units Novolin N Q RONNI 11 units Novolin R Q RONNI levothyroxine 175 mcg tablet 175 mcg feeding tube DAILY Patient Comments: TAKE ONE TABLET BY MOUTH ONCE DAILY BEFORE BREAKFAST tamsulosin 0.4 mg capsule 0.8 mg PO Q24H amlodipine 10 mg tablet 5 mg PO DAILY losartan 100 mg tablet 100 mg PO DAILY Patient Comments: TAKE 1 TABLET (100 MG) BY MOUTH ONCE DAILY. (DME) insulin syringe-needle U-100 [TRUEplus Insulin] 0.5 mL 31 gauge x 5/16 syringe MISCELLANEOUS Patient Comments: USE DIRECTED TO ADMININSTER INSULIN PER MD INSTRUCTIONS rosuvastatin 10 mg tablet 20 mg PO DAILY Patient Comments: TAKE ONE TABLET (20MG) BY MOUTH AT BEDTIME hydrochlorothiazide 12.5 mg tablet 12.5 mg PO DAILY Patient Comments: TAKE ONE TABLET BY MOUTH ONCE DAILY Senna Plus 8.6-50 mg capsule 1 tab-cap PO BID Novolin R FlexPen 100 unit/mL (3 mL) insulin pen 11 unit subcut QAM Rx Instructions: 29 units Novlin N Q AM 18 units Novolin R Q AM 11 units Novolin N Q RONNI 11 units Novolin R Q RONNI Follow Up/Referrals: Pritesh Cruz MD [Primary Care Provider] - Stand Alone Forms: [facility] Info Inst[facility]
[2024-08-23 05:42] LABS: Appearance Urine Cloudy (Clear); Bilirubin Urine Negative (Negative); Blood Urine 3+ (Negative); Color Urine Yellow (Yellow); Glucose Urine 2+ (Negative); Ketones Urine Negative (Negative); Leukocyte Esterase Urine Negative (Negative); Nitrite Urine Negative (Negative); Protein Urine 1+ (Negative); Specific Gravity Urine 1.025 (1.000-1.030); Urobilinogen Urine 0.2 (0.2-1.0); pH Urine 5.5 (5.0-8.5)
--- NOTE | 2024-08-23 05:45 | CRLHL7_ITS ---
For Patients: As a result of the Century Cures Act, medical imaging exams and procedure reports are released immediately into your electronic medical record. You may view this report before your referring provider. If you have questions, please contact your health care provider. Indication: HEMATURIA, L INGUINAL PAIN. Technique: CT of the abdomen and pelvis was performed without contrast. Comparison: 04/11/2019. Findings: Visualized lung bases: Minimal scarring versus atelectasis in the left lower lobe. Liver: Hepatomegaly measuring 22.1 cm, similar to prior. Slight increase in size a hyperdense subcentimeter nodule within the gallbladder fundus, measuring 7 mm on today`s study, previously 4 mm. Punctate calcification within the gallbladder. No pericholecystic inflammatory changes. No biliary ductal dilation. Pancreas: Unremarkable for unenhanced technique. Spleen: Splenomegaly measuring 14.5 cm, similar to prior. Adrenals: Unremarkable for unenhanced technique. Kidneys: Mild left hydroureteronephrosis secondary to a 2 mm distal ureteral calculus. New left perinephric stranding. No right hydronephrosis or nephrolithiasis. Fluid attenuation endophytic hypodensity within the interpolar region measuring approximately 1.2 cm, statistically likely to represent a cyst. Aorta/IVC: Mild atherosclerotic aortic calcifications with unchanged mild infrarenal abdominal aortic ectasia measuring 2.4 cm. Lymph nodes: No lymphadenopathy. Bowel: Nonobstructed bowel. Normal appendix. No localized inflammatory changes. No intraperitoneal free air or fluid. Pelvis: Mild prostatomegaly. Bones/body wall: Multilevel degenerative disc disease. Partially visualized sternotomy. Calcification associated with the left adductor longus tendon, likely sequela of prior injury. Impression: 1. Left 2 millimeter distal ureteral calculus with mild left hydroureteronephrosis. Left perinephric stranding may be reactive versus infectious. Recommend correlation with urinalysis. 2. Slight increase in size of a subcentimeter hyperdensity along the gallbladder fundus, potentially gallbladder polyp versus adenomyomatosis. Recommend nonemergent right upper quadrant ultrasound for further characterization. 3. Hepatosplenomegaly. Please note that all CT scans at this facility use dose modulation, iterative reconstruction, and/or weight-based dosing when appropriate to reduce radiation dose to as low as reasonably achievable. Dictated by Rivka Bellamy MD @ 08/23/2024 6:57:39 AM (Electronically Signed)
[2024-08-23 05:49] LABS: Amorphous Sediment Urine Many; Bacteria Urine Moderate; Squamous Epithelial Cell Urine Moderate (None-Few)
[2024-08-23] MEDS: KETOROLAC 10 MG TABLET PO (05:59)
== END 2024-08-23 07:31 | disposition home or self-care (01) ==
PROVIDERS: Emergency Provider Family Medicine; PCP Family Medicine
DX: N20.1 Calculus of ureter (principal)
CPT/HCPCS: 74176; 81001; 81003; 87086; 99284; A9270